=== PATIENT | female | born 1985 | race Caucasian/White ===

== ENCOUNTER 2020-04-04 00:32 | Emergency (ER) | payer BC ==
[~2020-04-04] VITALS: Ht 165.1 cm; Wt 72.6 kg
[2020-04-04 00:40] VITALS: BP_SYST 141
--- NOTE | 2020-04-04 00:54 | NUR ---
Patient brought to Room #7, placed in gown, kevin side rails up, awaiting evaluation.
--- NOTE | 2020-04-04 00:55 | NUR ---
Pt. presents to the ED ambulatory, A&Ox4 with c/o of sharp right lower pelvic pain that is 10/ and began around 1900 on 04/02. Pt. states that she has vomited x3 times in the past 24 hours but denies other symptoms and is afebrile. Pt. has hx of copper IUD placed. Patient's LMP began 04/03. VSS. Will continue to monitor.
--- NOTE | 2020-04-04 00:56 | NUR ---
ER Dr. Jeter at bedside examining patient.
[2020-04-04] MEDS ORDERED: MORPHINE 4 MG/ML INJ. SYRINGE IVP ONE (01:15)
--- NOTE | 2020-04-04 01:30 | NUR ---
22G angiocath placed to left hand
--- NOTE | 2020-04-04 01:45 | NUR ---
Pt. off unit to radiology via wheelchair, accompanied by undergraduate intern.
[2020-04-04 01:55] LABS: HEMOGLOBIN 7.3 g/dL (12.0-16.0); LYMPHOCYTES # (AUTO) 1.7 K/uL (1.0-5.5)
[2020-04-04 02:00] LABS: BASOPHILS % (AUTO) 0.3 % (0.0-2.0); EOSINOPHILS % (AUTO) 0.3 % (0.0-4.0); HEMATOCRIT 24.7 % (36-48); LYMPHOCYTES % (AUTO) 28.2 % (20.5-51.5); MEAN CORPUSCULAR HEMOGLOBIN 17 pg (27-31); MEAN CORPUSCULAR HGB CONC 29 % (32-36); MEAN CORPUSCULAR VOLUME 58 fL (79.0-98.0); MONOCYTES # (AUTO) 0.3 K/uL (0.0-1.0); MONOCYTES % (AUTO) 4.7 % (1.7-9.3); NEUTROPHILS % (AUTO) 66.5 % (40.0-70.0); PLATELET COUNT (AUTO) 297 K/uL (130-430); RED BLOOD CELL COUNT(AUTO) 4.29 MIL/uL (4.2-6.2); RED CELL DISTRIBUTION WIDTH 21.4 % (9.0-15.0)
[2020-04-04 02:19] LABS: CALCIUM 8.5 mg/dL (8.4-11.0); CREATININE 0.7 mg/dL (0.55-1.30); POTASSIUM 3.5 mmol/L (3.5-5.1)
--- NOTE | 2020-04-04 02:20 | NUR ---
Patient back on unit from radiology.
[2020-04-04 02:25] LABS: ALBUMIN 4.2 g/dL (3.4-4.8); TOTAL BILIRUBIN 0.4 mg/dL (0.0-1.0)
--- NOTE | 2020-04-04 03:23 | NUR ---
Received report from Kathy RN.
[2020-04-04 03:35] VITALS: BP_SYST 116
--- NOTE | 2020-04-04 03:35 | NUR ---
Patient given written and verbal discharge instructions and verbalizes understanding. ER MD discussed with patient the results and treatment provided. Patient in stable condition. ID arm band removed. IV catheter removed intact and dressing applied, no active bleeding. Rx of [place] given. 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 Pain Scale 0/10. Opportunity for questions provided and answered. Medication side effect fact sheet provided.
== END 2020-04-04 03:35 | disposition home or self-care (01) ==
LOC: SED 00:32
DX: R10.31 Right lower quadrant pain (principal); D36.7 Benign neoplasm of other specified sites
CPT/HCPCS: 36415; 74176; 76830; 76857; 80053; 81002; 81025; 85025; 96374; 99285; J2270